=== PATIENT | male | born 1960 | race Caucasian/White ===

== ENCOUNTER 2025-03-14 19:49 | Inpatient (IN) | payer OTHER ==
[2025-03-14] MEDS ORDERED: MULTIVITAMINS 10 ML VIAL (INJ) IV ONE (20:10)
[2025-03-14] MEDS ORDERED: THIAMINE 200 MG/2 ML INJ ONE (20:10)
[2025-03-14] MEDS ORDERED: TDAP (DIPHTH,PERTUSS(ACELL),TET VAC) 0.5 ML VIAL IMVAC ONE (20:11)
[2025-03-14] MEDS ORDERED: NA CHLORIDE 0.9% 1,000 ML ONE (20:11)
[2025-03-14 20:24] LABS: Absolute Lymphocytes (CBC) 2.2 K/uL (0.7-4.9); Hematocrit 38.8 % (39.6-49.0); Hemoglobin 14.0 g/dL (13.6-17.9); MCH 35.0 pg (27.0-35.0); MCHC 36.0 g/dL (32.0-36.0); MCV 97.2 fL (80-100); MPV 5.8 fL (7.6-11.3); Nucleated RBC Absolute Count 0.0 (0-0); Nucleated Red Blood Cells % 0.1 % (0-0); RBC Red Blood Cell Count 3.99 M/uL (4.33-5.43); White Blood Count 7.20 thou/uL (4.3-10.9)
[2025-03-14] MEDS ORDERED: FOLIC ACID 5 MG/ML VIAL ONE (20:24)
[2025-03-14 20:32] LABS: PT Prothrombin Time 12.2 SECONDS (10-13.0); Protime INR 1.08
[2025-03-14 20:51] LABS: ALT/SGPT 33 U/L (16-61); AST/SGOT 27 U/L (15-37); Albumin 3.2 g/dL (3.4-5.0); Albumin/Globulin Ratio 0.9 (1.1-1.8); Alkaline Phosphatase 82 U/L (45-117); Anion Gap 14.9 mEq/L (5.0-15.0); BUN Blood Urea Nitrogen 10 mg/dL (7-18); Globulin 3.6 g/dL (2.3-3.5); Glucose Level 103 mg/dL (74-106); Magnesium 1.8 mg/dL (1.6-2.4); NT PRO-BNP 116 pg/mL (<125); Potassium 2.9 mEq/L (3.5-5.1); Thyroid Stimulating Hormone 2.310 uIU/mL (0.358-3.740); Troponin High Sensitivity 4.5 pg/mL (<58.9)
[2025-03-14 21:00] LABS: Bilirubin Indirect, Calculated 0.2 mg/dL (0.2-0.8)
--- NOTE | 2025-03-14 21:08 | RAD REPORT ---
EXAMINATION: XR LEFT ELBOW CLINICAL INDICATION: Male, 64 years old. contusion TECHNIQUE: Multiple views of the left elbow were obtained. COMPARISON: No prior exam. FINDINGS: Mild posterior soft tissue swelling. No acute fracture or dislocation seen.
--- NOTE | 2025-03-14 21:12 | RAD REPORT ---
EXAM: CT brain without contrast HISTORY: fall acute COMPARISON: None TECHNIQUE: Multiple contiguous axial images were obtained and a CT of the brain without contrast. Sag ittal and coronal reformats were performed. One or more of the following dose reduction techniques were used: Automated exposure control, adjust ment of the mA and/or kV according to patient size, and/or iterative reconstruction. FINDINGS: No evidence of hydrocephalus, intracranial hemorrhage, or extra-axial fluid collection. Mild brain atrophy with mild periventricular and deep white matter chronic microvascular ischemic ch anges present. No evidence of midline shift or areas of brain edema. The calvarium is intact. The visualized paranasal sinuses and mastoid air cells are essentially clear . IMPRESSION: No evidence of acute intracranial abnormality.
--- NOTE | 2025-03-14 21:14 | RAD REPORT ---
EXAMINATION: CT CERVICAL SPINE WITHOUT CONTRAST HISTORY: fall acute COMPARISON: None TECHNIQUE: Multiple contiguous axial images were obtained in a CT of the cervical spine without IV co ntrast. Sagittal and coronal reformats were performed. One or more of the following dose reduction techniques were used: Automated exposure control, adjustment of the mA and kV according to patient si ze, and iterative reconstruction. Unless otherwise specified, incidental findings do not require dedicated imaging follow-up. FINDINGS: The vertebral bodies and intervertebral discs demonstrate normal height and alignment without fractu re or subluxation. Moderate lower cervical spondylosis. No prevertebral soft tissue swelling is seen. The posterior facets are well aligned. Normal alignment of the skull base with the cervical spine is seen. The odontoid appears normal and the lateral masses are symmetric. Bilateral carotid atherosclerosis. The lung apices are unremarkable. IMPRESSION: No evidence of acute osseous abnormality of the cervical spine. Moderate lower cervical spondylosis.
--- NOTE | 2025-03-14 21:17 | RAD REPORT ---
EXAM: CT CHEST, ABDOMEN AND PELVIS WITHOUT CONTRAST CLINICAL INDICATION: abdominal contusion TECHNIQUE: CT chest, abdomen and pelvis was performed without contrast, as per department protocol. A xial, sagittal and coronal reconstructions were obtained. One or more of the following dose reduction techniques were used: Automated exposure control, adjustment of the mA and/or kV according to patient size, and/or iterative reconstruction. Unless otherwise specified, incidental findings do not require dedicated imaging follow-up. Examination is limited by the lack of intravenous contrast material. COMPARISON: No prior exam. FINDINGS: LUNGS: Emphysematous lung mccall with linear atelectasis in both lung bases. PLEURA: No pleural effusion. No pneumothorax. MEDIASTINUM AND LYMPH NODES: No mediastinal mass or fluid collection. Normal size mediastinal, hilar, and axillary lymph nodes. OSSEOUS STRUCTURES AND CHEST WALL: Intact. LIVER: Normal in size and contour. No focal lesion or biliary dilatation. Grossly unremarkable gallbl adder. PANCREAS: No mass, ductal dilation, or tima-pancreatic fluid. SPLEEN: Normal size. No focal lesion. ADRENALS: Normal; no mass. KIDNEYS: Normal size and contour. No hydronephrosis. URINARY BLADDER: Normal contour. GASTROINTESTINAL TRACT: No bowel obstruction, free air, significant free fluid or abscess. APPENDIX: Normal appendix. LYMPH NODES: No lymphadenopathy. MUSCULOSKELETAL: Mild lower lumbar spondylosis. OTHER: Aortoiliac atherosclerosis. Small fat-containing hernias, greater on the right. IMPRESSION: No acute abnormalities seen in the chest, abdomen or pelvis.
--- NOTE | 2025-03-14 21:31 | ER ---
Nurse's Notes [facility] Name: Godfrey Smith Age: 64 yrs Sex: Male : 1960 Arrival Date: 03/14/2025 Time: 19:49 Bed 3 Private MD: Diagnosis: Hypo-osmolality and hyponatremia;Hypokalemia;Alcohol abuse with intoxication;Acute generalized weakness, acute fall at home, left elbow contusion and abrasion, left abdominal wall contusion;Chronic alcohol abuse Presentation: 03/14 20:00 Chief complaint: EMS states: toned out for fall, skin tear to left arm, abrasion to vc1 abdomen, no LOC, ETOH+, denies being on blood thinners. Coronavirus screen: Vaccine status: Patient reports receiving the 2nd dose of the covid vaccine. Patient reports receiving the 1st dose of the Covid vaccine. At this time, the client does not indicate any symptoms associated with coronavirus-19. Ebola Screen: No symptoms or risks identified at this time. Initial Sepsis Screen: Does the patient meet any 2 criteria? No. Patient's initial sepsis screen is negative. Does the patient have a suspected source of infection? No. Patient's initial sepsis screen is negative. Risk Assessment: Do you want to hurt yourself or someone else? Patient reports no desire to harm self or others. Onset of symptoms was March 14, 2025 at 19:29. 20:00 Method Of Arrival: : [facility] vc1 20:00 Acuity: SHE 3 vc1 20:10 Note pt refused c collar and IV from EMS. Mechanism of Injury: Fall from standing vc1 position. Transition of care: patient was not received from another setting of care. Triage Assessment: 20:06 General: Appears in no apparent distress. well nourished, Behavior is calm, vc1 cooperative, Smells of alcohol, Reports Denies. General:. Pain: Complains of pain in abdomen and left arm. Historical: - Allergies: 20:06 No Known Allergies; vc1 - Home Meds: 20:06 Unable to obtain [Active]; vc1 - PMHx: 20:06 Hypertensive disorder; Congestive heart failure; Gastroesophageal reflux disease; vc1 - PSHx: 20:06 None; vc1 - Immunization history:: Adult Immunizations up to date, Client reports receiving the 2nd dose of the Covid vaccine, Client reports receiving the 1st dose of the Covid vaccine, Last tetanus immunization: up to date Flu vaccine is up to date. - Infectious Disease History:: Denies. - Social history:: Smoking status: Patient reports the use of cigarette tobacco products, smokes one pack cigarettes per day. - Family history:: not pertinent. Screenin:16 [facility] ED Fall Risk Assessment (Adult) History of falling in the last 3 months, vc1 including since admission Yes- fall prone (multiple falls) (3 pts) Confusion or Disorientation No (0 pts) Intoxicated or Sedated Yes (3 pts) Impaired Gait Yes (1 pt) Mobility Assist Device Used No (0 pt) Altered Elimination No (0 pt) Score/Fall Risk Level 3 or more points = High Risk Oriented to surroundings, Maintained a safe environment, Educated pt \T\ family on fall prevention, incl call for assistance when getting out of bed, Assessed \T\ reinforced patient's understanding of fall precautions, Hourly rounding (assess needs \T\ fall precautionary measures) done, Implemented a Fall Risk Plan of Care, Offered frequent toileting (1:1 observation), Remained with patient while ambulating. Assessment: 20:22 General: Appears in no apparent distress. Behavior is calm, cooperative, Smells of km10 alcohol. Pain: Denies pain. Neuro: Level of Consciousness is awake, alert, obeys commands, Oriented to person, place, time, situation, Appropriate for age Gait is unsteady. Cardiovascular: Edema is 2+ to left ankle, left foot, right ankle and right foot. Respiratory: Airway is patent Respiratory effort is even, unlabored, Respiratory pattern is symmetrical, tachypnea. Musculoskeletal: Reports weakness in generalized pt explained after the fall, he was unable to get up, feeling weak. Injury Description: Abrasion sustained to left arm is bleeding, dirty, Bruise sustained to abdomen is red, was sustained 30-60 minutes ago. 21:15 Reassessment: small bottle of crown royal apple found under the patient during CT scan. vc1 Bottle was placed in patient belongings bag and given to patients . Patients took the bottle of alcohol to her car. 22:00 General: Appears uncomfortable, Behavior is cooperative, tremors. km10 22:00 Reassessment: Dr. Milian at bedside assessing patient at this time. New orders placed km10 for pt's change in condition. Pain: Complains of pain in abdomen. Vital Signs: 20:00 BP 142 / 62; Pulse 83; Resp 16; Temp 97.4; Pulse Ox 100% on R/A; Weight 117.93 kg; vc1 Height 5 ft. 10 in. ; 21:13 BP 127 / 85; Pulse 85; Resp 16; Pulse Ox 95% on R/A; km10 22:27 BP 116 / 65; Pulse 85; Resp 16; Pulse Ox 96% on 2 lpm NC; km10 20:00 Body Mass Index 37.31 (117.93 kg, 177.8 cm) vc1 Hanna Coma Score: 21:13 Eye Response: spontaneous(4). Motor Response: obeys commands(6). Verbal Response: km10 oriented(5). Total: 15. 21:50 Eye Response: spontaneous(4). Motor Response: obeys commands(6). Verbal Response: sp4 oriented(5). Total: 15. 22:27 Eye Response: spontaneous(4). Motor Response: obeys commands(6). Verbal Response: km10 oriented(5). Total: 15. ED Course: 19:58 Patient arrived in ED. vc1 19:58 Bc Willis MD is Attending Physician. sp4 20:05 Inserted saline lock: 20 gauge in right antecubital area, using aseptic technique. km10 Blood collected. Flushed with 10 mL NS Missed attempt(s): 20 gauge antecubital area. Bleeding controlled, band aid applied, catheter tip intact. 20:05 No provider procedures requiring assistance completed. km10 20:06 Triage completed. vc1 20:06 Arm band placed on right wrist. vc1 20:15 Patient has correct armband on for positive identification. Bed in low position. Side vc1 rails up X2. Pulse ox on. NIBP on. 20:22 Jovanna Sinha, MANSOOR is Primary Nurse. km10 20:26 Troponin HS Sent. 10 20:26 PT-INR Sent. 10 20:26 NT PRO-BNP Sent. km10 20:26 Magnesium Sent. km10 20:26 LFT's Sent. 10 20:26 CBC with Diff Sent. 10 20:26 Basic Metabolic Panel Sent. km10 20:39 EKG done, by ED staff, reviewed by Bc Willis MD. me1 20:43 Wound care: to abrasion, was irrigated with normal saline, dressed with ABD pads. km10 20:58 CT Head Brain wo Cont In Process Unspecified. EDMS 20:58 CT C Spine In Process Unspecified. EDMS 20:58 CT Chest Abdomen Pelvis W/O Contrast In Process Unspecified. EDMS 21:01 Elbow Left 3 View XRAY In Process Unspecified. EDMS 21:33 Master Milian RN is Hospitalizing Provider. sp4 Administered Medications: 20:18 Drug: Boostrix Tdap IM 0.5 ml IM once; as a single dose Route: IM; Site: left deltoid; me1 21:36 Follow up: Response: (VIS) Vaccine information sheet provided today. Questions and/or lg3 concerns addressed. VIS edition date: Mar 12, 2021.; No adverse reaction 20:18 Drug: Banana Bag - (Multivitamin IV 1 amp, NS 0.9% IV 1000 ml, Thiamine IV 100 mg, me1 foLIC Acid IVPB 1 mg) IV at calculated rate once Route: IV; Rate: calculated rate; Site: right antecubital; 21:36 Follow up: Response: No adverse reaction; IV Status: Completed infusion; IV Intake: lg3 1000ml 21:36 Drug: Potassium Chloride PO 40 mEq PO once Route: PO; lg3 23:34 Follow up: Response: No adverse reaction km10 22:16 Drug: morphine IVP or IV 4 mg IVP once over 4 mins Route: IVP; Infused Over: 4 mins; km10 Site: right antecubital; 23:35 Follow up: Response: No adverse reaction 10 22:16 Drug: Ondansetron IVP 4 mg IVP once; over 2 minutes Route: IVP; Site: right antecubital;km10 23:35 Follow up: Response: No adverse reaction 10 22:26 Drug: Potassium Chloride IV 20 mEq IV at calculated rate once; administer over 1-2 km10 hours Route: IV; Rate: calculated rate; Site: right antecubital; Intake: 21:36 IV: 1000ml; Total: 1000ml. lg3 Outcome: 21:30 Discharge ordered by . sp4 21:36 Decision to Hospitalize by Provider. sp4 23:35 Admitted to Tele accompanied by tech, via stretcher, room 428, km10 23:35 Condition: stable 23:35 Discharge instructions given to patient, family, Instructed on the need for admit, Demonstrated understanding of instructions, 23:36 Patient left the ED. km10 Signatures: Dispatcher [employer] Nya Kumari, RN RN lg3 Harini Botello RN RN vc1 Bc Willis MD MD sp4 Darshana Mcgraw RN RN me1 Jovanna Sinha RN RN km10 Corrections: (The following items were deleted from the chart) 20:13 20:00 Chief complaint: EMS states: toned out for fall, skin tear to left arm, abrasion vc1 to abdomen, no LOC, ETOH+ vc1 21:15 20:22 General: Appears in no apparent distress. Behavior is calm, cooperative, km10 km10
--- NOTE | 2025-03-14 21:31 | EDPHYS ---
Physician Documentation [facility] Name: Godfrey Smith Age: 64 yrs Sex: Male : 1960 Arrival Date: 03/14/2025 Time: 19:49 Bed 3 Private MD: ED Physician Bc Willis HPI: 03/14 20:04 This 64 yrs old Male presents to ER via Unassigned with complaints of fall at home, gen sp4 weakness . 21:49 Patient is a very pleasant 64-year-old male with history of hypertension, congestive sp4 heart failure, GERD and alcoholism. Patient is presenting with EMS after he fell in his garage. Patient reports he because elbow injury additionally abdominal wall contusion. Patient reports he had several beers today. After he fell at home he states he developed generalized weakness and could not get up on his feet.. Historical: - Allergies: 20:06 No Known Allergies; vc1 - Home Meds: 20:06 Unable to obtain [Active]; vc1 - PMHx: 20:06 Hypertensive disorder; Congestive heart failure; Gastroesophageal reflux disease; vc1 - PSHx: 20:06 None; vc1 - Immunization history:: Adult Immunizations up to date, Client reports receiving the 2nd dose of the Covid vaccine, Client reports receiving the 1st dose of the Covid vaccine, Last tetanus immunization: up to date Flu vaccine is up to date. - Infectious Disease History:: Denies. - Social history:: Smoking status: Patient reports the use of cigarette tobacco products, smokes one pack cigarettes per day. - Family history:: not pertinent. ROS: 21:50 Constitutional: Negative for fever, chills, and weight loss, positive for generalized sp4 weakness positive for acute fall positive for left elbow injury, positive for left abdominal wall contusion, positive for alcohol intoxication 21:50 All other systems are negative, Exam: 21:50 Constitutional: This is a well developed, well nourished patient who is awake, alert, sp4 and in no acute distress. Head/Face: Normocephalic, atraumatic. Eyes: Pupils equal round and reactive to light, extra-ocular motions intact. Lids and lashes normal. Conjunctiva and sclera are not injected. Cornea within normal limits. Periorbital areas with no swelling, redness, or edema. ENT: Nares patent. No nasal discharge, no septal abnormalities noted. Tympanic membranes are normal and external auditory canals are clear. Oropharynx with no redness, swelling, or masses, exudates, or evidence of obstruction, uvula midline. Mucous membranes moist. Neck: Trachea midline, no thyromegaly or masses palpated, and no cervical lymphadenopathy. Supple, full range of motion without nuchal rigidity, or vertebral point tenderness. Chest/axilla: Normal chest wall appearance and motion. Nontender with no deformity. No lesions are appreciated. Cardiovascular: Regular rate and rhythm with a normal S1 and S2. No gallops, murmurs, or rubs. No pulse deficits. Respiratory: Lungs have equal breath sounds bilaterally, clear to auscultation and percussion. No rales, rhonchi or wheezes noted. No increased work of breathing, no retractions or nasal flaring. Abdomen/GI: Soft, with normal bowel sounds. No distension or tympany. No guarding or rebound. No evidence of tenderness throughout. Back: No spinal tenderness. No costovertebral tenderness. Skin: Warm, dry with normal turgor. Normal color with no rashes, no lesions, and no evidence of cellulitis. MS/ Extremity: Pulses equal, no cyanosis. Neurovascular intact. Full, normal range of motion. Neuro: Awake and alert, GCS 15, oriented to person, place, time, and situation. Cranial nerves II-XII grossly intact. Motor strength 5/5 in all extremities. Sensory grossly intact. Psych: Awake, alert, with orientation to person, place and time. Behavior, mood, and affect are within normal limits 21:52 ECG was reviewed by the Attending Physician. EKG at 2036 sinus rhythm with first-degree sp4 AV block, rate 78. Otherwise normal. Vital Signs: 20:00 BP 142 / 62; Pulse 83; Resp 16; Temp 97.4; Pulse Ox 100% on R/A; Weight 117.93 kg; vc1 Height 5 ft. 10 in. ; 21:13 BP 127 / 85; Pulse 85; Resp 16; Pulse Ox 95% on R/A; km10 22:27 BP 116 / 65; Pulse 85; Resp 16; Pulse Ox 96% on 2 lpm NC; km10 20:00 Body Mass Index 37.31 (117.93 kg, 177.8 cm) vc1 [place] Coma Score: 21:13 Eye Response: spontaneous(4). Motor Response: obeys commands(6). Verbal Response: km10 oriented(5). Total: 15. 21:50 Eye Response: spontaneous(4). Motor Response: obeys commands(6). Verbal Response: sp4 oriented(5). Total: 15. 22:27 Eye Response: spontaneous(4). Motor Response: obeys commands(6). Verbal Response: km10 oriented(5). Total: 15. MDM: 20:04 Medical Screening Exam initiated sp4 21:51 Differential Diagnosis: electrolyte abnormality, alcohol intoxication, hypoglycemia, sp4 intracranial bleed, overdose, seizure, sepsis, volume depletion. Data reviewed: vital signs, nurses notes, EMS record, lab test result(s), EKG, radiologic studies, CT scan. Consideration of Admission/Observation Patient was admitted/placed on observation. Escalation of care including admission/observation considered. Management of patient was discussed with the following: Hospitalist: Rukhsana WHALEN . 22:35 ED course: EXAMINATION: XR LEFT ELBOW CLINICAL INDICATION: Male, 64 years old. sp4 contusion TECHNIQUE: Multiple views of the left elbow were obtained. COMPARISON: No prior exam. FINDINGS: Mild posterior soft tissue swelling. No acute fracture or dislocation seen. . ED course: EXAM: CT brain without contrast HISTORY: fall acute COMPARISON: None TECHNIQUE: Multiple contiguous axial images were obtained and a CT of the brain without contrast. Sagittal and coronal reformats were performed. One or more of the following dose reduction techniques were used: Automated exposure control, adjustment of the mA and/or kV according to patient size, and/or iterative reconstruction. FINDINGS: No evidence of hydrocephalus, intracranial hemorrhage, or extra-axial fluid collection. Mild brain atrophy with mild periventricular and deep white matter chronic microvascular ischemic changes present. No evidence of midline shift or areas of brain edema. The calvarium is intact. The visualized paranasal sinuses and mastoid air cells are essentially clear. IMPRESSION: No evidence of acute intracranial abnormality. . ED course: EXAMINATION: CT CERVICAL SPINE WITHOUT CONTRAST HISTORY: fall acute COMPARISON: None TECHNIQUE: Multiple contiguous axial images were obtained in a CT of the cervical spine without IV contrast. Sagittal and coronal reformats were performed. One or more of the following dose reduction techniques were used: Automated exposure control, adjustment of the mA and kV according to patient size, and iterative reconstruction. Unless otherwise specified, incidental findings do not require dedicated imaging follow-up. FINDINGS: The vertebral bodies and intervertebral discs demonstrate normal height and alignment without fracture or subluxation. Moderate lower cervical spondylosis. No prevertebral soft tissue swelling is seen. The posterior facets are well aligned. Normal alignment of the skull base with the cervical spine is seen. The odontoid appears normal and the lateral masses are symmetric. Bilateral carotid atherosclerosis. The lung apices are unremarkable. IMPRESSION: No evidence of acute osseous abnormality of the cervical spine. Moderate lower cervical spondylosis.. ED course: EXAM: CT CHEST, ABDOMEN AND PELVIS WITHOUT CONTRAST CLINICAL INDICATION: abdominal contusion TECHNIQUE: CT chest, abdomen and pelvis was performed without contrast, as per department protocol. Axial, sagittal and coronal reconstructions were obtained. One or more of the following dose reduction techniques were used: Automated exposure control, adjustment of the mA and/or kV according to patient size, and/or iterative reconstruction. Unless otherwise specified, incidental findings do not require dedicated imaging follow-up. Examination is limited by the lack of intravenous contrast material. COMPARISON: No prior exam. FINDINGS: LUNGS: Emphysematous lung mccall with linear atelectasis in both lung bases. PLEURA: No pleural effusion. No pneumothorax. MEDIASTINUM AND LYMPH NODES: No mediastinal mass or fluid collection. Normal size mediastinal, hilar, and axillary lymph nodes. OSSEOUS STRUCTURES AND CHEST WALL: Intact. LIVER: Normal in size and contour. No focal lesion or biliary dilatation. Grossly unremarkable gallbladder. PANCREAS: No mass, ductal dilation, or tima-pancreatic fluid. SPLEEN: Normal size. No focal lesion. ADRENALS: Normal; no mass. KIDNEYS: Normal size and contour. No hydronephrosis. URINARYBLADDER: Normal contour. GASTROINTESTINAL TRACT: No bowel obstruction, free air, significant free fluid or abscess. APPENDIX: Normal appendix. LYMPH NODES: No lymphadenopathy. MUSCULOSKELETAL: Mild lower lumbar spondylosis. OTHER: Aortoiliac atherosclerosis. Small fat-containing hernias, greater on the right. IMPRESSION: No acute abnormalities seen in the chest, abdomen or pelvis. . 03/14 20:01 Order name: Basic Metabolic Panel; Complete Time: 21:17 sp4 03/14 20:01 Order name: CBC with Diff; Complete Time: 21:17 sp4 03/14 20:01 Order name: LFT's; Complete Time: 21:17 sp4 03/14 20:01 Order name: Magnesium; Complete Time: 21:17 sp4 03/14 20:01 Order name: NT PRO-BNP; Complete Time: 21:17 sp4 03/14 20:01 Order name: PT-INR; Complete Time: 21:17 sp4 03/14 20:01 Order name: Troponin HS; Complete Time: 21:17 sp4 03/14 20:01 Order name: CK; Complete Time: 21:17 sp4 03/14 20:01 Order name: Alcohol Level; Complete Time: 21:17 sp4 03/14 20:01 Order name: TSH; Complete Time: 21:17 sp4 03/14 20:01 Order name: T4 Free; Complete Time: 21:17 sp4 03/14 20:02 Order name: UDS sp4 03/14 20:02 Order name: UA W/ Microscopic sp4 03/14 20:04 Order name: Lipase sp4 03/14 22:23 Order name: Potassium EDMS 03/14 22:25 Order name: Potassium EDMS 03/14 22:28 Order name: CBC with Automated Diff EDMS 03/14 22:28 Order name: CBC with Automated Diff EDMS 03/14 22:28 Order name: CBC with Automated Diff EDMS 03/14 22:28 Order name: Comprehensive Metabolic Panel EDMS 03/14 22:28 Order name: Comprehensive Metabolic Panel EDMS 03/14 22:28 Order name: Comprehensive Metabolic Panel EDMS 03/14 22:28 Order name: Magnesium EDMS 03/14 22:28 Order name: Magnesium EDMS 03/14 22:28 Order name: Magnesium EDMS 03/14 20:01 Order name: CT Head Brain wo Cont; Complete Time: 21:17 sp4 03/14 20:02 Order name: CT C Spine; Complete Time: 21:17 sp4 03/14 20:02 Order name: CT Chest Abdomen Pelvis W/O Contrast; Complete Time: 21:17 sp4 03/14 20:03 Order name: Elbow Left 3 View XRAY; Complete Time: 21:17 sp4 03/14 20:01 Order name: EKG; Complete Time: 20:01 sp4 03/14 22:28 Order name: Physical Therapy Consult EDMS 03/14 20:01 Order name: Cardiac monitoring; Complete Time: 20:45 sp4 03/14 20:01 Order name: EKG - Nurse/Tech; Complete Time: 20:39 sp4 03/14 20: Order name: IV Saline Lock; Complete Time: 20:26 sp4 03/14 20: Order name: Labs collected and sent; Complete Time: 20:45 sp4 03/14 20:01 Order name: O2 Per Protocol; Complete Time: 20:26 sp4 03/14 20:01 Order name: O2 Sat Monitoring; Complete Time: 20:26 sp4 03/14 20:04 Order name: Wound Care: Cleanse left elbow with saline; Complete Time: 20:41 sp4 EC:37 Rate is 78 beats/min. Rhythm is regular, Normal Sinus Rhythm. QRS [place] is Normal. [place] sp4 interval is prolonged. QRS interval is normal. QT interval is normal. No Q waves. T waves are Normal. No ST changes noted. Clinical impression: No evidence of ischemia. Interpreted by me. Reviewed by me. Administered Medications: 20:18 Drug: Boostrix Tdap IM 0.5 ml IM once; as a single dose Route: IM; Site: left deltoid; me1 21:36 Follow up: Response: (VIS) Vaccine information sheet provided today. Questions and/or lg3 concerns addressed. VIS edition date: Mar 12, 2021.; No adverse reaction 20:18 Drug: Banana Bag - (Multivitamin IV 1 amp, NS 0.9% IV 1000 ml, Thiamine IV 100 mg, me1 foLIC Acid IVPB 1 mg) IV at calculated rate once Route: IV; Rate: calculated rate; Site: right antecubital; 21:36 Follow up: Response: No adverse reaction; IV Status: Completed infusion; IV Intake: lg3 1000ml 21:36 Drug: Potassium Chloride PO 40 mEq PO once Route: PO; lg3 23:34 Follow up: Response: No adverse reaction km10 22:16 Drug: morphine IVP or IV 4 mg IVP once over 4 mins Route: IVP; Infused Over: 4 mins; km10 Site: right antecubital; 23:35 Follow up: Response: No adverse reaction km10 22:16 Drug: Ondansetron IVP 4 mg IVP once; over 2 minutes Route: IVP; Site: right antecubital;km10 23:35 Follow up: Response: No adverse reaction 10 22:26 Drug: Potassium Chloride IV 20 mEq IV at calculated rate once; administer over 1-2 km10 hours Route: IV; Rate: calculated rate; Site: right antecubital; Disposition: 21:53 Critical Care:. sp4 Disposition Summary: 03/14/25 21:36 Hospitalization Ordered Notes: Hospitalization Status: Inpatient Admission sp4 Provider: Master Milian [facility]03/14/25 21:36) sp4 Condition: Stable(03/14/25 21:36) sp4 Problem: new(03/14/25 21:36) sp4 Symptoms: have improved(03/14/25 21:36) sp4 Bed/Room Type: Standard sp4 Room Assignment: [facility](03/14/25 22:45) [facility] Diagnosis - Hypo-osmolality and hyponatremia(03/14/25 21:36) sp4 - Hypokalemia(03/14/25 21:36) sp4 - Alcohol abuse with intoxication(03/14/25 21:36) sp4 - Acute generalized weakness, acute fall at home, left elbow contusion and abrasion, sp4 left abdominal wall contusion - Chronic alcohol abuse sp4 Forms: - Medication Reconciliation Form sp4 - SBAR form sp4 - Leadership Thank You Letter sp4 Critical care time excluding procedures: 21:53 Critical care time: Bedside Care: 36 minutes, Consultation: 12 minutes, Family sp4 Intervention: 12 minutes. Total time: 60 minutes Signatures: Dispatcher [employer] EDNya Angeles RN RN lg3 Harini Botello RN RN vc1 Bc Willis MD MD sp4 Darshana Mcgraw RN RN me1 Natalie Perez f Jovanna Sinha RN RN km10 Corrections: (The following items were deleted from the chart) 21:33 21:30 Home sp4 sp4 21:33 21:30 new sp4 sp4 21:33 21:30 have improved sp4 sp4 21:33 21:30 Stable sp4 sp4 21:33 21:30 Alcohol abuse with intoxication sp4 sp4 21:33 21:30 Hypokalemia sp4 sp4 21:33 21:30 Hypo-osmolality and hyponatremia sp4 sp4 :33 21:30 Acute hyponatremia, acute generalized weakness, fall at home, multiple left elbow sp4 skin abrasions, acute left abdominal wall contusion . sp4 : 21:36 sp4 kmf
[2025-03-14] MEDS ORDERED: POTASSIUM CL SA 10 MEQ TAB PO ONE (21:33)
[2025-03-14] MEDS ORDERED: MORPHINE 4 MG/ML SYR ONE (22:06)
[2025-03-14] MEDS ORDERED: ONDANSETRON 4 MG/2 ML VIAL ONE (22:06)
[2025-03-14] MEDS ORDERED: LORazepam 2 MG/ML VIAL ONE (22:06)
[2025-03-14] MEDS ORDERED: KCL 20 MEQ/100 mL IVPB 100 ML IV ONE (22:08)
[2025-03-14] MEDS ORDERED: ACETAMINOPHEN 325 MG TABLET PO PRN (22:23)
[2025-03-14] MEDS ORDERED: ONDANSETRON 4 MG/2 ML VIAL IV PRN (22:23)
--- NOTE | 2025-03-14 22:33 | P.HP ---
Certification for Inpatient Patient admitted to: Observation With expected LOS: <2 Midnights Patient will require the following post-hospital care: None Practitioner: I am a practitioner with admitting privileges, knowledge of patient current condition, hospital course, and medical plan of care. Services: Services provided to patient in accordance with Admission requirements found in Title 42 Section 412.3 of the Code of Federal Regulations Patient History Date of Service: 03/14/25 Reason for admission: Hypokalemia, hyponatremia, onset of alcohol withdrawal. History of Present Illness: Patient is a pleasant 64-year-old male with past medical history of essential hypertension, alcohol use disorder, hypercholesteremia, and GERD. Patient brought to the ER today after sustaining a mechanical fall at home secondary to alcohol intoxication, and after patient fell he was not able to get up and off the floor and the son had to assist getting him up and off the floor and EMS was called and brought him to the ER. According to patient present at bedside, she states patient has been drinking most part of the day, and apparently became intoxicated, and fell on the floor when attempting to ambulate. She states patient drinks alcohol every day, patient states he has been drinking alcohol for many years, states he has never gone into alcohol withdrawal. Patient states when he fell he did not hit his head, denies of any headaches, nausea or vomiting, chest pain, shortness of breath, endorses left upper quadrant abdominal pain resulting after patient fell on his left side. Patient have an abrasion and wound to his left elbow. Patient CT chest, abdomen, pelvis impression no acute abnormality seen in the chest, abdomen or pelvis. During admission assessment, patient was fully awake, alert and oriented x3, patient was tremulous, but no history of Parkinson disease, despite the fact that the patient alcohol was 272, he appears to have an onset of alcohol withdrawal. Patient's sodium is 126, potassium 2.9. Course in ER: (1) CT head impression: No evidence of acute intracranial abnormality. (2) CT chest/abdomen/pelvis impression: No acute abnormalities seen in the chest, abdomen, or pelvis. (3) left elbow x-ray, impression: Mild posterior soft tissue swelling. No acute fracture or dislocation seen. (4) CT cervical spine impression: No evidence of acute osseous abnormality of the cervical spine. Moderate lower cervical spondylosis. Allergies No Known Allergies Allergy (Unverified 02/15/12 09:07) Home medications list reviewed: No Home Medications: Losartan/Hydrochlorothiazide [Losartan-Hctz 100-12.5 mg Tab] 1 each PO DAILY 03/15/25 Meloxicam [Mobic] 15 mg PO DAILY PRN 03/15/25 Metoprolol Tartrate [Lopressor*] 50 mg PO DAILY 03/15/25 Pantoprazole Sodium 40 mg PO DAILY 03/15/25 Rosuvastatin [Crestor] 10 mg PO BEDTIME 03/15/25 - Past Medical/Surgical History Diabetic: No -: HTN -: Hyperlipidemia -: GERD -: Tonsilectomy - Family History Father -: Hypertension, Stroke Mother -: Kidney disease - Social History Smoking Status: Current every day smoker Patient receptive to therapy: No Alcohol use: Yes CD- Drugs: No Caffeine use: Yes Place of Residence: Home Review of Systems 10-point ROS is otherwise unremarkable General: Weakness Gastrointestinal: Other (Left side abdomen pain secondary to fall) Physical Examination - Physical Exam General: Alert, In no apparent distress, Oriented x3, Cooperative HEENT: Atraumatic, Normocephalic, PERRLA, Mucous membr. moist/pink Neck: Supple, 2+ carotid pulse no bruit, JVD not distended, No LAD, Without JVD or thyroid abnormality Respiratory: Clear to auscultation bilaterally, Normal air movement Cardiovascular: No edema, Normal pulses, Regular rate/rhythm, Normal S1 S2, No gallops Capillary refill: <2 Seconds Gastrointestinal: Normal bowel sounds, Soft and benign, Non-distended, W/out hepatomegaly, No ascites Musculoskeletal: No clubbing, No swelling, No contractures, No erythema, No tenderness, No warmth Integumentary: No rashes, No breakdown, No significant lesion, No erythema, No warmth, No cyanosis, Other (Left elbow abrasion and wound sustained after falling today) Neurological: Normal gait, Normal speech, Normal strength at 5/5 x4 extr, Normal tone, Sensation intact, Cranial nerves 3-12 intact, Normal reflexes 2+, Normal affect Lymphatics: No axilla or inguinal lymphadenopathy External genitalia: No edema, Non-tender - Studies Laboratory Data (last 24 hrs) 03/14/25 03/14/25 03/14/25 20:15 20:15 20:15 WBC 7.20 Hgb 14.0 Hct 38.8 L Plt Count 265 PT 12.2 INR 1.08 Sodium 126 L Potassium 2.9 L BUN 10 Creatinine 0.95 Glucose 103 Magnesium 1.8 Total Bilirubin 0.4 AST 27 ALT 33 Alkaline Phosphatase 82 Male Exam - Male Exam Inguinal exam: No hernias Assessment and Plan - Plan Patient admitted to observation with diagnosis of fall, hypokalemia, hyponatremia, weakness. Patient sodium 126, potassium 2.9, initial alcohol level 272. (1)Hyponatremia, and hypokalemia. -order 1/2NS +20 mEq KCL at 75ml/hr. -Order potassium chloride pre mixed 20 mEq IV x 1. Patient had some potassium supplement given in the ER. -Follow-up CMP in the morning. (2)fall and generalized weakness. -Consult physical therapy to evaluate and treat on endurance and strengthening. (3)Alcohol use disorder. Patient drinks alcohol daily and has been drinking alcohol for many years. Patient alcohol level was 272. On admission as sessment, patient started having presenting symptoms of alcohol withdrawal including tremulous, mild diaphoretic, and tachycardia. -Order initial dose of Librium 25 mg p.o. x 1. -Order Librium 25 mg p.o. every 6 hours. -Thiamine 100 mg p.o. daily. Patient received initial Thiamine dose in ER. -Folate 1 mg p.o. daily. Received initial dose in ER. - Ativan 2 mg IV as needed every 2 hours for seizure and alcohol withdrawal symptoms. Patient Ativan may need to be optimized based on CIWA scores. -CIWA scores every 4 hours and as needed for change of condition. (4)Chronic essential hypertension. -Continue home medication metoprolol 50 mg p.o. daily. (5)Chronic hypercholesterolemia. -Continue home medication rosuvastatin 10 mg p.o. at bedtime. (6)Chronic GERD. -Continue home medication pantoprazole 40 mg p.o. daily. (7)DVT prophylaxis. -Lovenox 40 mg subcu daily. (8)Explained the entire treatment plan to the patient, , and son present at bedside, solicit questions answered and voiced understanding. Discharge Plan: Home Plan to discharge in: 48 Hours - Advance Directives Does patient have a Living Will: No Does patient have a Durable POA for Healthcare: No - Code Status/Comfort Care Code Status Assessed: Yes Code Status: Full Code Critical Care: No Time Spent Managing Pts Care (In Minutes): 55
[2025-03-14] MEDS: LORazepam 2 MG/ML VIAL IV PRN (22:51)
[2025-03-14] MEDS: NACHLORIDE 0.45% 1,000 ML with POTASSIUM CL 20 MEQ IV SCH (23:00)
[2025-03-15] MEDS: NACHLORIDE 0.45% 1,000 ML IV ONE (00:16)
[2025-03-15 00:25] LABS: Sqamous Epithelial None Seen /HPF (None Seen); Urine Micro Reflex YN NO BILL MICROSCOPIC
[2025-03-15] MEDS: KCL 20 MEQ/100 mL IVPB 20 MEQ/100 ML BAG IV ONE (00:28)
[2025-03-15 00:29] LABS: METHAMPHETAM NEGATIVE (NEGATIVE); THC Cannibis NEGATIVE (NEGATIVE)
[2025-03-15 01:11] LABS: Lipase 39.0 U/L (13-75); Potassium 3.2 mEq/L (3.5-5.1)
[2025-03-15 01:42] VITALS: BMI 37.7
[2025-03-15] MEDS: POTASSIUM CL SA 10 MEQ TAB PO ONE ×2 (04:02→04:04)
[2025-03-15] MEDS: TRAMADOL HCL 50 MG TAB ONE (04:04)
[2025-03-15] MEDS: TRAMADOL HCL 50 MG TAB PO ONE (04:05)
[2025-03-15 04:44] LABS: Absolute Lymphocytes (CBC) 2.1 K/uL (0.7-4.9); Hematocrit 39.0 % (39.6-49.0); Hemoglobin 13.9 g/dL (13.6-17.9); MCH 34.5 pg (27.0-35.0); MCHC 35.6 g/dL (32.0-36.0); MCV 97.1 fL (80-100); MPV 6.2 fL (7.6-11.3); Nucleated RBC Absolute Count 0.0 (0-0); Nucleated Red Blood Cells % 0.1 % (0-0); RBC Red Blood Cell Count 4.02 M/uL (4.33-5.43); White Blood Count 7.50 thou/uL (4.3-10.9)
[2025-03-15 05:06] LABS: ALT/SGPT 30.0 U/L (16-61); AST/SGOT 23.0 U/L (15-37); Albumin 2.9 g/dL (3.4-5.0); Albumin/Globulin Ratio 0.9 (1.1-1.8); Alkaline Phosphatase 76.0 U/L (45-117); Anion Gap 11.0 mEq/L (5.0-15.0); BUN Blood Urea Nitrogen 8.0 mg/dL (7-18); Globulin 3.2 g/dL (2.3-3.5); Glucose Level 102.0 mg/dL (74-106); Magnesium 1.7 mg/dL (1.6-2.4); Potassium 3.0 mEq/L (3.5-5.1)
[2025-03-15] MEDS: POTASSIUM 25 MEQ EFFERV TAB PO ONE (06:19)
[2025-03-15] MEDS: PANTOPRAZOLE 40MG TABLET PO SCH (06:20)
[2025-03-15] MEDS: METOPROLOL XL 50 MG TAB PO SCH (06:20)
[2025-03-15] MEDS ORDERED: INSULIN REGULAR (HUMAN) 100 UNIT/ML SQ SCH (07:30)
[2025-03-15] MEDS: THIAMINE HCL 100 MG TABLET PO SCH (09:17)
[2025-03-15] MEDS: MAGNESIUM SULFATE 1 gm IVPB 1 GM/100 ML BAG IV ONE (09:17)
[2025-03-15] MEDS: FOLIC ACID 1 MG TABLET PO SCH (09:17)
[2025-03-15] MEDS: ENOXAPARIN 40 MG/0.4 ML SQ SCH (09:17)
[2025-03-15] MEDS: MORPHINE 4 MG/ML SYR IV PRN (12:15)
--- NOTE | 2025-03-15 15:24 | P.PN ---
Subjective Date of Service: 03/15/25 Chief Complaint: Hypokalemia, hyponatremia, onset of alcohol withdrawal. Patient stated he ambulated in the hallway today. He remained awake and alert. He denies any new complaint. No recorded fever. Physical Examination - Vital Signs Temperature: 97.6 F Blood Pressure: 119/68 Pulse: 84 Respirations: 17 Pulse Ox (%): 97 - Studies Laboratory Data (last 24 hrs) 03/14/25 03/14/25 03/14/25 20:15 20:15 20:15 WBC 7.20 Hgb 14.0 Hct 38.8 L Plt Count 265 PT 12.2 INR 1.08 Sodium 126 L Potassium 2.9 L BUN 10 Creatinine 0.95 Glucose 103 Magnesium 1.8 Total Bilirubin 0.4 AST 27 ALT 33 Alkaline Phosphatase 82 Assessment And Plan - Plan Physical examination General: Alert and oriented x3, NAD, morbidly obese. HEENT: Conjunctiva not pale, anicteric sclera Neck: Supple, no elevated JVD Heart: Heart sounds 1 and 2 normal, regular rhythm, normal rate, no pedal edema Lungs: Clear to auscultation bilaterally, adequate breath sounds bilaterally, no rhonchi or crackles. Abdomen: Soft, nondistended, nontender, normal bowel sounds. Extremities: No tenderness, no deformity Skin: Normal skin turgor, no rash, no nodules or ulcers. Neuro: No focal motor deficit. Normal speech. Mild hand tremors Psychiatry: Normal mood, no agitation. Diagnosis Hyponatremia Alcohol abuse with alcohol withdrawal syndrome Hypokalemia Hypertension Hypercholesterolemia GERD Plan: Hyponatremia Hypokalemia Likely related to alcohol intoxication Hyponatremia improved Continue IV NS Replace potassium IV and oral as needed Monitor BMP Alcohol abuse with alcohol withdrawal syndrome Patient states that he wants to quit drinking alcohol Continue CIWA Folic acid, thiamine. GERD Continue oral pantoprazole Hypercholesterolemia Continue home dose Crestor Essential hypertension Stable with normal BP Continue home dose metoprolol. DVT prophylaxis: Lovenox Advanced directive: Full code
[2025-03-15] MEDS: ROSUVASTATIN 10 MG TAB PO SCH (20:17)
[2025-03-16 05:20] LABS: Absolute Lymphocytes (CBC) 1.2 K/uL (0.7-4.9); Hematocrit 36.4 % (39.6-49.0); Hemoglobin 12.9 g/dL (13.6-17.9); MCH 35.2 pg (27.0-35.0); MCHC 35.6 g/dL (32.0-36.0); MCV 98.8 fL (80-100); MPV 6.2 fL (7.6-11.3); Nucleated RBC Absolute Count 0.0 (0-0); Nucleated Red Blood Cells % 0.1 % (0-0); RBC Red Blood Cell Count 3.68 M/uL (4.33-5.43); White Blood Count 6.50 thou/uL (4.3-10.9)
[2025-03-16 05:39] LABS: ALT/SGPT 30.0 U/L (16-61); AST/SGOT 17.0 U/L (15-37); Albumin 2.8 g/dL (3.4-5.0); Albumin/Globulin Ratio 0.9 (1.1-1.8); Alkaline Phosphatase 72.0 U/L (45-117); Anion Gap 8.2 mEq/L (5.0-15.0); BUN Blood Urea Nitrogen 7.0 mg/dL (7-18); Globulin 3.1 g/dL (2.3-3.5); Glucose Level 97.0 mg/dL (74-106); Magnesium 1.9 mg/dL (1.6-2.4); Potassium 4.2 mEq/L (3.5-5.1)
--- NOTE | 2025-03-16 15:33 | P.PN ---
Subjective Date of Service: 03/16/25 Chief Complaint: Hypokalemia, hyponatremia, onset of alcohol withdrawal. Patient experiencing more tremors today He remained alert and oriented and denies any new complain No recorded fever. Physical Examination - Vital Signs Temperature: 98.7 F Blood Pressure: 134/68 Pulse: 74 Respirations: 18 Pulse Ox (%): 97 - Studies Laboratory Data (last 24 hrs) 03/16/25 03/16/25 05:00 05:00 WBC 6.50 Hgb 12.9 L Hct 36.4 L Plt Count 232 Sodium 132 L Potassium 4.2 D BUN 7 Creatinine 0.85 Glucose 97 Phosphorus 2.5 Magnesium 1.9 Total Bilirubin 0.7 AST 17 ALT 30 Alkaline Phosphatase 72 Assessment And Plan - Plan Physical examination General: Alert and oriented x3, NAD, morbidly obese. HEENT: Anicteric sclera Neck: No elevated JVD Heart: Heart sounds 1 and 2 normal, regular rhythm, normal rate, no pedal edema Lungs: Clear to auscultation bilaterally, adequate breath sounds bilaterally, no rhonchi or crackles. Abdomen: Soft, nondistended, nontender, normal bowel sounds. Extremities: No tenderness, no deformity Skin: Normal skin turgor, no rash, no nodules or ulcers. Neuro: No focal motor deficit. Normal speech. Mild hand tremors Psychiatry: Normal mood, no agitation. Diagnosis Hyponatremia Alcohol abuse with alcohol withdrawal syndrome Hypokalemia Hypertension Hypercholesterolemia GERD Plan: Hyponatremia Hypokalemia Likely related to alcohol intoxication Hyponatremia improved Continue IV NS Replace potassium IV and oral as needed Monitor BMP Alcohol abuse with alcohol withdrawal syndrome Patient states that he wants to quit drinking alcohol Continue CIWA Folic acid, thiamine. GERD Continue oral pantoprazole Hypercholesterolemia Continue home dose Crestor Essential hypertension Stable with normal BP Continue home dose metoprolol. 03/16 Patient experiencing alcohol withdrawal symptoms Continue CIWA with Librium and IV Ativan as needed Continue folic acid and thiamine Hyponatremia improved, sodium level up to 132 and stable Hypokalemia corrected. Stop IV potassium infusion. Monitor and replace potassium orally as needed Continue IV NS. BP has been stable. Continue current dose of metoprolol. Neurochecks. DVT prophylaxis: Lovenox Advanced directive: Full code
[2025-03-16] MEDS: NA CHLORIDE 0.9% 1,000 ML IV SCH (16:00)
[2025-03-17] MEDS: PANTOPRAZOLE 40MG TABLET PO SCH (08:01)
[2025-03-17 11:59] VITALS: O2SAT 96
--- NOTE | 2025-03-17 15:25 | P.DS ---
Admission Date: 03/16/25 Discharge Date: 03/17/25 Disposition: ROUTINE DISCHARGE Discharge Condition: FAIR Reason for Admission: Hypokalemia, hyponatremia, onset of alcohol withdrawal. Brief History of Present Illness: 64-year-old male with past medical history of essential hypertension, alcohol use disorder, hypercholesteremia, and GERD brought to the ER today after sustaining a mechanical fall at home secondary to alcohol intoxication, and after patient fell he was not able to get up and off the floor and the son had to assist getting him up and off the floor and EMS was called and brought him to the ER. Patient is reportedly been drinking most part of the day, and apparently became intoxicated, and fell on the floor when attempting to ambulate. According to family report, patient drinks alcohol every day, denies experiencing alcohol withdrawal before. CT chest, abdomen, pelvis impression no acute abnormality seen in the chest, abdomen or pelvis. Patient had hand tremors however he was fully awake, alert and oriented x3, sodium was [address] head showed no evidence of acute intracranial abnormality. Patient was hospitalized for further management. Hospital Course: Diagnosis Hyponatremia Alcohol abuse with alcohol withdrawal syndrome Hypokalemia Hypertension Hypercholesterolemia GERD Patient admitted to the medical floor and the following medical problems addressed: Hyponatremia Hypokalemia Likely related to alcohol intoxication Hyponatremia improved to 132 and stabilized with IV NS Potassium was replaced. Alcohol abuse with alcohol withdrawal syndrome Patient states that he wants to quit drinking alcohol Patient placed on CIWA, folic acid, thiamine. Patient was treated with oral Librium. He received only a single dose of IV Ativan. Patient has been ambulating in his room Patient received only a single dose of Librium today, he has been able to ambulate in the hallway with no unsteady gait and no tremors. Alcohol withdrawal symptoms resolved. Patient was seen by PT, he ambulated safely and was discharged from PT services GERD Continued oral pantoprazole Hypercholesterolemia Continued home dose Crestor Essential hypertension Stable with normal BP Continue home dose metoprolol. Losartan and hydrochlorothiazide were held due to hyponatremia and hypokalemia. Losartan was resumed on discharge. HCTZ discontinued during high risk for hyponatremia in the context of alcohol abuse. Vital Signs/Physical Exam: Temp Pulse Resp BP Pulse Ox 98.6 F 76 16 128/67 96 03/17/25 12:00 03/17/25 12:00 03/17/25 12:00 03/17/25 12:00 03/17/25 12:00 General: Alert, In no apparent distress, Oriented x3 HEENT: Mucous membr. moist/pink, Sclerae nonicteric Neck: Supple, JVD not distended Respiratory: Clear to auscultation bilaterally, Normal air movement Cardiovascular: No edema, Regular rate/rhythm, Normal S1 S2 Gastrointestinal: Normal bowel sounds, Soft and benign, Non-distended Musculoskeletal: No swelling Integumentary: No rashes, No cyanosis Neurological: Normal speech, Normal strength at 5/5 x4 extr, Cranial nerves 3-12 intact, Other (No tremors.) Laboratory Data at Discharge: WBC 6.50 thou/uL (4.3-10.9) 03/16/25 05:00 Hgb 12.9 g/dL (13.6-17.9) L 03/16/25 05:00 Hct 36.4 % (39.6-49.0) L 03/16/25 05:00 Plt Count 232 thou/uL (152-406) 03/16/25 05:00 PT 12.2 SECONDS (10-13.0) 03/14/25 20:15 INR 1.08 03/14/25 20:15 Sodium 132 mEq/L (136-145) L 03/16/25 05:00 Potassium 4.2 mEq/L (3.5-5.1) D 03/16/25 05:00 BUN 7 mg/dL (7-18) 03/16/25 05:00 Creatinine 0.85 mg/dL (0.70-1.30) 03/16/25 05:00 Glucose 97 mg/dL (74-106) 03/16/25 05:00 Phosphorus 2.5 mg/dL (2.5-4.9) 03/16/25 05:00 Magnesium 1.9 mg/dL (1.6-2.4) 03/16/25 05:00 Total Bilirubin 0.7 mg/dL (0.2-1.0) 03/16/25 05:00 AST 17 U/L (15-37) 03/16/25 05:00 ALT 30 U/L (16-61) 03/16/25 05:00 Alkaline Phosphatase 72 U/L (45-117) 03/16/25 05:00 Lipase 39 U/L (13-75) 03/15/25 00:40 Home Medications: Metoprolol Tartrate [Lopressor*] 50 mg PO DAILY 03/15/25 Pantoprazole Sodium 40 mg PO DAILY 03/15/25 Rosuvastatin [Crestor*] 10 mg PO BEDTIME 03/15/25 Folic Acid 1 mg PO DAILY #30 tab 03/17/25 Losartan Potassium 100 mg PO DAILY #30 tab 03/17/25 Thiamine HCl [Vitamin B-1*] 100 mg PO DAILY #30 tab 03/17/25 New Medications: Folic Acid 1 mg PO DAILY #30 tab Losartan Potassium 100 mg PO DAILY #30 tab Thiamine HCl [Vitamin B-1*] 100 mg PO DAILY #30 tab Diet: AHA Activity: Ad juaquin Followup: Steve Franco MD [Primary Care Provider] - 1 Week Time spent managing pt's care (in minutes): 35
[2025-03-17 16:17] VITALS: BP 140/46; TEMP 98
== END 2025-03-17 16:30 | disposition home or self-care (01) | DRG 897 ==
LOC: ER 19:49 → ERHOLD 22:12 → 4TH 23:02 → OBSVTOIN 03-16 10:26
PROVIDERS: ADMIT Internal Medicine; ATTEND Internal Medicine
PROC: 5A09457 Assistance with Respiratory Ventilation, 24-96 Consecutive Hours, Continuous Positive Airway Pressure (ICD-10-PCS; principal; 2025-03-15)
DX: F10.139 Alcohol abuse with withdrawal, unspecified (principal); E87.1 Hypo-osmolality and hyponatremia; F10.129 Alcohol abuse with intoxication, unspecified; I10 Essential (primary) hypertension; E87.6 Hypokalemia; E66.01 Morbid (severe) obesity due to excess calories; E78.00 Pure hypercholesterolemia, unspecified; K21.9 Gastro-esophageal reflux disease without esophagitis; S50.02XA Contusion of left elbow, initial encounter; S30.1XXA Contusion of abdominal wall, initial encounter; F17.210 Nicotine dependence, cigarettes, uncomplicated; Z68.37 Body mass index [BMI] 37.0-37.9, adult; Z28.311 Partially vaccinated for COVID-19; W18.30XA Fall on same level, unspecified, initial encounter; Y90.8 Blood alcohol level of 240 mg/100 ml or more; Y93.9 Activity, unspecified; Y92.015 Private garage of single-family (private) house as the place of occurrence of the external cause; Y99.9 Unspecified external cause status
CPT/HCPCS: 36415; 70450; 71250; 72125; 74176; 80048; 80053; 80076; 80307; 81001; 82077; 82550; 83690; 83735; 83880; 84100; 84132; 84439; 84443; 84484; 85025; 85610; 90715; 93005; 94660; 94760; 96365; 96372; 96375; 97116; 97161; 99285; G0378; J1650; J2405; J3411; J3475; J3480; J7030